=== PATIENT | female | born 1975 | race Caucasian/White ===

== ENCOUNTER 2016-08-07 10:23 | Day surgery (SDC) | payer OTHER ==
--- NOTE | ~2016-08-07 | EGD ---
EGD REPORT [facility] [address] [place]. [address] NAME: BRITTNEY SIMMONS : [birth year] STATUS : REG [facility] PAT#: [id number] AGE: 41 ADM/REG DATE : 08/07/16 MR#: [id number] REPORT SERV DATE: 08/07/16 DICTATED BY: JARRETT PÉREZ DATE: 08/07/16 REPORT STATUS : Draft TRANSCRIBED [facility]: [facility] DATE: 08/07/16 Endoscopy Center Patient Name: Brittney Simmons Date of : 1975 Attending MD: JARRETT PÉREZ MD Procedure Date No Time: 08/07/2016 Procedure: Upper GI endoscopy Indications: Anemia, Diarrhea, Nausea Referring MD: CHIDI HALE Medicines: Monitored Anesthesia Care Complications: No immediate complications. Procedure: Pre-Anesthesia Assessment: - ASA Grade Assessment: III - A patient with severe systemic disease. After obtaining informed consent, the endoscope was passed under direct vision. Throughout the procedure, the patient's blood pressure, pulse, and oxygen saturations were monitored continuously. The GIF [id number] was introduced through the mouth, and advanced to the second part of duodenum. The upper GI endoscopy was accomplished without difficulty. The patient tolerated the procedure well. Findings: The examined esophagus was normal. The entire examined stomach was normal. The cardia and gastric fundus were normal on retroflexion. The duodenal bulb and 2nd part of the duodenum were normal. Biopsies were taken with a cold forceps for histology. Impression: - Normal esophagus. - Normal stomach. - Normal duodenal bulb and 2nd part of the duodenum. Biopsied. Recommendation: - Await pathology results. Procedure Code(s): --- Professional --- 26456, Esophagogastroduodenoscopy, flexible, transoral; with biopsy, single or multiple Diagnosis Code(s): --- Professional --- D64.9, Anemia, unspecified R19.7, Diarrhea, unspecified R11.0, Nausea EGD REPORT [facility] [address] [facility]. [address] NAME: BRITTNEY SIMMONS : [birth year] STATUS : REG [facility] [place] PAT#: [id number] AGE: 41 ADM/REG DATE : 08/07/16 MR#: [id number] REPORT SERV DATE: 08/07/16 DICTATED BY: JARRETT PÉREZ DATE: 08/07/16 REPORT STATUS : Draft TRANSCRIBED BY: [employer] SERVICES DATE: 08/07/16 CPT copyright 2013 [employer]. All rights reserved. The codes documented in this report are preliminary and upon garage door hanger review may be revised to meet current compliance requirements. JARRETT PÉREZ MD 08/07/2016 1:40 PM This report has been signed electronically. Number of Addenda: 0 Note Initiated On: 08/07/2016 1:27 PM Scope Withdrawal Time 0 hours 0 minutes 0 seconds [address] [facility] [place] [address]
--- NOTE | ~2016-08-07 | EGD ---
EGD REPORT [facility] [address] [place]. [address] NAME: BRITTNEY SIMMONS : [birth year] STATUS : REG [facility] [place] PAT#: [id number] AGE: 41 ADM/REG DATE : 08/07/16 MR#: [id number] REPORT SERV DATE: 08/07/16 DICTATED BY: JARRETT PÉREZ DATE: 08/07/16 REPORT STATUS : Draft [facility]ANSCRIBED BY: [facility] DATE: 08/07/16 Endoscopy Center Patient Name: Brittney Simmons Date of : 1975 Attending MD: JARRETT PÉREZ MD Procedure Date No Time: 08/07/2016 Procedure: Colonoscopy Indications: Anemia, Diarrhea Referring MD: CHIDI HALE Medicines: Monitored Anesthesia Care Complications: No immediate complications. Procedure: Pre-Anesthesia Assessment: - ASA Grade Assessment: III - A patient with severe systemic disease. After I obtained informed consent, the scope was passed under direct vision. Throughout the procedure, the patient's blood pressure, pulse, and oxygen saturations were monitored continuously. The CF [id number] was introduced through the anus and advanced to the terminal ileum, with identification of the appendiceal orifice and IC valve. The colonoscopy was performed without difficulty. The patient tolerated the procedure well. The quality of the bowel preparation was good. Findings: The digital rectal exam was normal. Pertinent negatives include no palpable rectal lesions. The terminal ileum appeared normal. The ascending colon appeared normal. Biopsies were taken with a cold forceps for evaluation of microscopic colitis. Three sessile polyps were found in the transverse colon. The polyps were 3 to 6 mm in size. These polyps were removed with a cold biopsy forceps. Resection and retrieval were complete. The sigmoid colon appeared normal. Biopsies were taken with a cold forceps for evaluation of microscopic colitis. Hemorrhoids were found during retroflexion and were mild. Impression: - The examined portion of the ileum was normal. - The ascending colon is normal. Biopsied. - Three 3 to 6 mm polyps in the transverse colon. Resected and retrieved. - The sigmoid colon is normal. Biopsied. - Hemorrhoids. Recommendation: - Patient has a contact number available for EGD REPORT [address] [address] NAME: BRITTNEY SIMMONS : [birth year] STATUS : REG [facility] [place] PAT#: [id number] AGE: 41 ADM/REG DATE : 08/07/16 MR#: [id number] REPORT SERV DATE: 08/07/16 DICTATED BY: JARRETT PÉREZ DATE: 08/07/16 REPORT STATUS : Draft TRANSCRIBED BY: [facility] DATE: 08/07/16 emergencies. The signs and symptoms of potential delayed complications were discussed with the patient. Return to normal activities tomorrow. Written discharge instructions were provided to the patient. - Regular diet. - Continue present medications. - Await pathology results. - Return to GI clinic in 4 weeks. Procedure Code(s): --- Professional --- 33051, Colonoscopy, flexible, proximal to splenic flexure; with biopsy, single or multiple Diagnosis Code(s): --- Professional --- K64.9, Unspecified hemorrhoids D12.3, Benign neoplasm of transverse colon D64.9, Anemia, unspecified R19.7, Diarrhea, unspecified CPT copyright 2013 [employer]. All rights reserved. The codes documented in this report are preliminary and upon supervisor gluing review may be revised to meet current compliance requirements. JARRETT PÉREZ MD 08/07/2016 2:07 PM This report has been signed electronically. Number of Addenda: 0 Note Initiated On: 08/07/2016 12:47 PM Scope Withdrawal Time 0 hours 12 minutes 47 seconds [address] [id number]
[~2016-08-07 10:23] MED LIST: DUONEB; FERROUS SULF325 M1 PO; FLOVENT44 INH; LEXAPRO10 PO; LIPITOR10 PO; LYRICA150 MG PO; MOBIC15 MG PO; PERCOCET 10/3251 TAB PO; TOPAMAX25 PO; VENTOLIN HFA INH; ZANAFLEX 4 MG TA4 MG
[2016-08-17] MEDS ORDERED: PERCOCET 10/3251 TAB PO (15:38)
[2016-08-17] MEDS ORDERED: CLARIT10 PO (15:40)
[2016-08-17] MEDS ORDERED: MELATONIN10 M2 PO (15:43)
[2016-08-17] MEDS ORDERED: PROBIOTIC PO (15:44)
[2016-08-17] MEDS ORDERED: VALERIAN ROOT PO (15:44)
[2016-08-17] MEDS ORDERED: DIMENHY50I PO (15:45)
== END 2016-08-07 23:59 | disposition home or self-care (01) ==
LOC: DMU 10:23
PROVIDERS: Internal Medicine Gastroenterology
PROC: 0DBN8ZZ Excision of Sigmoid Colon, Via Natural or Artificial Opening Endoscopic (ICD-10-PCS; 2016-08-07)
PROC: 0DB98ZX Excision of Duodenum, Via Natural or Artificial Opening Endoscopic, Diagnostic (ICD-10-PCS; 2016-08-07)
PROC: 0DBK8ZX Excision of Ascending Colon, Via Natural or Artificial Opening Endoscopic, Diagnostic (ICD-10-PCS; principal; 2016-08-07 12:30)
PROC: 0DBN8ZX Excision of Sigmoid Colon, Via Natural or Artificial Opening Endoscopic, Diagnostic (ICD-10-PCS; 2016-08-07 12:30)
DX: K63.5 Polyp of colon (principal); K64.9 Unspecified hemorrhoids; R19.7 Diarrhea, unspecified; D64.9 Anemia, unspecified; R11.0 Nausea; Z91.040 Latex allergy status; Z88.8 Allergy status to other drugs, medicaments and biological substances; G43.909 Migraine, unspecified, not intractable, without status migrainosus; R25.1 Tremor, unspecified; J45.909 Unspecified asthma, uncomplicated; E78.00 Pure hypercholesterolemia, unspecified; M79.7 Fibromyalgia; E66.01 Morbid (severe) obesity due to excess calories; Z79.891 Long term (current) use of opiate analgesic; Z79.51 Long term (current) use of inhaled steroids
CPT/HCPCS: 84703; 88305

== ENCOUNTER 2016-08-23 09:00 | Day surgery (SDC) | payer OTHER ==
[2016-08-22 10:18] LABS: BASOPHILS 0.4 %; BASOPHILS ABSOLUTE 0.04 10/3/uL (0.0-0.16); EOSINOPHILS 1.9 %; EOSINOPHILS ABSOLUTE 0.19 10/3/uL (0.0-0.53); HEMATOCRIT 36.9 % (36.0-48.0); HEMOGLOBIN 11.7 g/dL (12.0-16.0); IMMATURE GRANULOCYTES 0.3 %; IMMATURE GRANULOCYTES ABSOLUTE 0.03 10/3/uL (0.0-0.11); LYMPHOCYTES 29.4 %; LYMPHOCYTES ABSOLUTE 2.93 10/3/uL (0.67-4.30); MEAN CORPUS HGB CONC 31.7 g/dL (32.0-36.0); MEAN CORPUSCULAR HEMOGLOB 27.7 pg (26.0-34.0); MEAN CORPUSCULAR VOLUME 87.2 fL (80-100); MEAN PLATELET VOLUME 10.6 fL (9.2-13.0); MONOCYTES 6.7 %; MONOCYTES ABSOLUTE 0.67 10/3/uL (0.21-1.20); NEUTROPHILS 61.3 %; NEUTROPHILS ABSOLUTE 6.09 10/3/uL (2.02-8.40); PLATELET COUNT 333 10/3/uL (150-400); RED CELL COUNT 4.23 10/6/uL (4.0-5.6)
[2016-08-22 10:19] LABS: MANUAL DIFF NO %
[2016-08-22 10:37] LABS: A/G RATIO 1.1 (0.7-1.9); ALBUMIN 3.7 G/DL (3.5-5.0); ALKALINE PHOSPHATASE 117 U/L (45-117); BUN (BLOOD UREA NITROGEN) 6 MG/DL (6-23); CHLORIDE, SERUM 107 MMOL/L (96-112); CO2 (CARBON DIOXIDE) 30 MMOL/L (24-34); CREATININE 0.82 MG/DL (0.55-1.02); GFR AFRICAN AMERICAN 102 ML/MIN (>=60); GFR NON AFRICAN AMERICAN 88 ML/MIN (>=60); GLOBULIN 3.4 G/DL (2.5-4.1); GLUCOSE, SERUM 91 MG/DL (60-99); POTASSIUM, SERUM 4.2 MMOL/L (3.5-5.3); SGOT(AST) 27 U/L (5-40); SGPT(ALT) 42 U/L (5-65); SODIUM, SERUM 141 MMOL/L (135-148); TOTAL BILIRUBIN 0.4 MG/DL (0-1.2); TOTAL PROTEIN 7.1 G/DL (6.0-8.5)
--- NOTE | ~2016-08-23 | PREOPHP ---
PreOp History and Physical [address] [place]. [address] NAME: BRITTNEY VILLASENOR : [birth year] STATUS : PRE [facility] [place] PAT#: [id number] AGE: 41 ADM/REG DATE : MR#: [id number] REPORT SERV DATE: 08/22/16 DICTATED BY: VICENTE ROWLEY III DATE: 08/10/16 REPORT STATUS : Draft TRANSCRIBED BY: MODL DATE: 08/10/16 HISTORY OF PRESENT ILLNESS: This 41-year-old female comes to the operating room for laparoscopic cholecystectomy, possible laparotomy, for symptomatic cholelithiasis and cholecystitis. The patient complains of intermittent episodes of upper abdominal pain and associated nausea. These symptoms are ongoing for 4 years. Recently, these symptoms have become worse. The patient has gallstones, was felt to have symptomatic cholelithiasis and cholecystitis. The patient comes to the operating room now for laparoscopic cholecystectomy, possible laparotomy. PAST MEDICAL HISTORY: 1. Hypertension. 2. Migraine headaches. 3. Asthma. 4. Fibromyalgia. ALLERGIES: LISINOPRIL AND LATEX. MEDICATIONS: Albuterol, Dramamine, Flovent, Lexapro, Lipitor, Lyrica, Mobic, oxycodone, Topamax, and Zanaflex. It should be noted that the patient is on chronic pain management for fibromyalgia. PAST SURGICAL HISTORY: None. FAMILY HISTORY: Positive for diabetes. SOCIAL HISTORY: The patient has no history of tobacco or alcohol use. REVIEW OF SYSTEMS: The patient complains of fatigue and weight gain, swelling in her hands and feet, back pain, and joint pain. PHYSICAL EXAMINATION: GENERAL: This is an obese female, in no acute distress. She is alert and oriented x3, blood pressure 150/83, pulse 80, and temperature 98.6. HEENT: Unremarkable. Cranial nerves 2 through 12 are normal. LUNGS: Clear. CARDIAC: Normal. ABDOMEN: Soft with mild tenderness in the right upper quadrant. Extremities are normal. LABORATORY DATA: Gallbladder ultrasound confirms gallstones. ASSESSMENT: A 41-year-old female with: 1. Symptomatic cholelithiasis and cholecystitis. 2. Obesity. 3. Fibromyalgia. 4. Asthma. 5. Migraine headaches. PreOp History and Physical [address] [address] NAME: BRITTNEY VILLASENOR : [birth year] STATUS : PRE [facility] PAT#: [id number] AGE: 41 ADM/REG DATE : MR#: [id number] REPORT SERV DATE: 08/22/16 DICTATED BY: VICENTE ROWLEY III DATE: 08/10/16 REPORT STATUS : Draft TRANSCRIBED BY: RADHIKA DATE: 08/10/16 6. Hypertension. PLAN: The patient comes into the operating room now for laparoscopic cholecystectomy, possible laparotomy. This procedure, the risks, benefits, and alternatives, including but not limited to, the risk for bleeding, infection, common bile duct injury, bile leak, retained common bile stone, enterotomy, or injury to any abdominal structure, the possible need for laparotomy, the possible persistence of her symptoms unrelieved by surgery, the possibility of postoperative diarrhea or incisional hernia, and unforeseen complications including deep venous thrombosis, pulmonary embolus, myocardial infarction, stroke, pneumonia, and have been fully and completely explained to the patient at length prior to surgery. The fact that this is a major operation with the risk for major morbidity, mortality, and no guarantee for relief of her symptoms has been explained to her. The expected length of recovery with open laparoscopic procedures has been explained. The option of nonoperative management has been offered to the patient but declined. The patient's questions have been answered. She understands the risks and agrees to surgery as planned. MADELEINE/RADHIKA Vicente Rowley III, M.D. / [phone]
--- NOTE | ~2016-08-23 | OP ---
Record Of [facility] [address] [place]. [address] NAME: BRITTNEY VILLASENOR : [birth year] STATUS : REG [facility]#: [id number] AGE: 41 ADM/REG DATE : 08/23/16 MR#: [id number] REPORT SERV DATE: 08/23/16 DICTATED BY: VICENTE ROWLEY III DATE: 08/23/16 REPORT STATUS : Draft TRANSCRIBED BY: MODL DATE: 08/23/16 DATE OF PROCEDURE: 08/23/2016 PREOPERATIVE DIAGNOSIS: Symptomatic cholelithiasis and cholecystitis. POSTOPERATIVE DIAGNOSIS: Symptomatic cholelithiasis and cholecystitis. PROCEDURE: Laparoscopic cholecystectomy. SURGEON: Vicente Rowley M.D. ANESTHESIA: General with intubation. COMPLICATIONS: None. ESTIMATED BLOOD LOSS: Less than 30 mL. SPECIMENS: Gallbladder. DRAINS: None. LAP AND SPONGE COUNT: Correct x3. BRIEF HISTORY: This 41-year-old female presented with evidence for symptomatic cholelithiasis and cholecystitis. It was felt that laparoscopic cholecystectomy, possible laparotomy, was indicated. This procedure, the risks, benefits, and alternatives, including but not limited to the risk for bleeding, infection, common bile duct injury, bile leak, retained common bile duct stone, enterotomy or injury to any abdominal structure, the definite possible need for laparotomy with possible persistence of her symptoms unrelieved by surgery, possibility of postoperative diarrhea or incisional hernia, and unforeseen complications including deep venous thrombosis, pulmonary embolus, myocardial infarction, stroke, pneumonia, and , were fully and completely explained to the patient prior to surgery. The fact that this was a major operation with risk for major morbidity and mortality with no guarantee for relief of her symptoms were explained to her. The expected length of recovery of both open and laparoscopic procedures was explained to the patient who had questions which were answered. She fully understood the risks and agreed to the surgery as planned. FINDINGS: The patient's gallbladder elmore were thickened and inflamed and there were adhesions between the gallbladder and omentum consistent with cholecystitis. The liver and remainder of the upper abdomen were otherwise unremarkable as far as we could determine through the laparoscope. PROCEDURE IN DETAIL: After being appropriately identified and after discussing the risks of surgery with the patient and her family in the preoperative area, the patient was taken to the operating room and placed in the supine position on the operating room table. General Record Of [facility] [address] [place]. [address] NAME: BRITTNEY VILLASENOR : 71 [place]US : [place] [facility] [place] PAT#: [id number] AGE: 41 ADM/REG DATE : 08/23/16 MR#: [id number] REPORT SERV DATE: 08/23/16 DICTATED BY: VICENTE ROWLEY III DATE: 08/23/16 REPORT STATUS : Draft TRANSCRIBED BY: MODL DATE: 08/23/16 anesthesia was administered. She was intubated without difficulty. The abdomen was prepped and draped sterilely in the usual fashion. After an appropriate "[facility]" [facility], a small transverse incision was made below the umbilicus. The skin and fascia on either side was elevated with towel clips. A Veress needle was placed through the incision into the peritoneal cavity. Correct position of the needle in the peritoneal cavity was confirmed by the hanging drop test. The abdominal cavity was then insufflated to about 13 mmHg with carbon dioxide. Correct position of air in the peritoneal cavity was confirmed by palpation. The Veress needle was removed and replaced with 10 mm trocar. The laparoscope was placed through this. The patient was placed in the reverse Trendelenburg position and to her left. A second 10 mm trocar was placed just below the xiphoid process, to the right of the falciform ligament, under direct vision with the laparoscope. Two 5 mm trocars were placed along the right subcostal margin, one in the midaxillary line, the other in the midclavicular line. These were also placed under direct vision with the laparoscope. The upper abdomen was inspected. The gallbladder appeared to be chronically diseased. The gallbladder elmore were thickened and inflamed consistent chronic cholecystitis. The liver and remainder of the upper abdomen were otherwise unremarkable as far as we could determine through the laparoscope. The appropriate instruments were placed through the trocars. The gallbladder was grasped and the infundibulum of the gallbladder was retracted laterally and inferiorly so as to expose the triangle of Calot. Using careful sharp and blunt dissection, the cystic duct was carefully and meticulously defined proximally and distally. The cystic duct was fairly long. The junction of the cystic duct with the common bile duct was appreciated, but not skeletonized. The cystic artery was similarly defined proximally and distally. The fibrous and fatty tissue between these structures was divided so as to clearly identify the critical angle. Once these structures were clearly defined, the cystic duct was clipped using two clips on the common bile duct side and one on the gallbladder side, all placed as close to the gallbladder as possible, taking care not encroach upon or injure the common bile duct in any way. The cystic duct was then divided between these clips as close to the gallbladder as possible. We elected not to perform a cholangiogram because there was no preoperative or intraoperative evidence for biliary dilatation and because the patient's preoperative liver enzymes were normal and because her biliary anatomy was clearly defined. Again, the structure was not divided or clipped until the critical angle and triangle of Calot had been clearly identified. The cystic artery was then similarly clipped and divided as close to the gallbladder as possible. Using the spatula and the cautery, the gallbladder was carefully dissected from the liver bed. This went very well. Before the gallbladder was completely removed, the gallbladder bed and portal areas were irrigated numerous times with saline. The saline was aspirated dry. This process was repeated several times until hemostasis was meticulously and thoroughly assured in all areas. It was also assured that the clips in the portal areas were in good position and there was no extravasation of bile from any accessory bile duct. Once this was assured, the gallbladder was completely dissected away from the liver and placed in the Endopouch. The liver bed was elevated, irrigated, and inspected for meticulous and thorough hemostasis and for absence of any biliary extravasation and to be certain that the clips were in good position. Once this was assured, the gallbladder and Endopouch were brought out through the infraumbilical incision and placed in the laparoscope through the subxiphoid port. The fascia of the infraumbilical incision was closed with 0 Vicryl suture. The lateral two trocars were removed. These two lower trocar sites were inspected on the underside for hemostasis with the laparoscope. Once this was assured, the subxiphoid trocar was removed Record Of Operation [facility] [address] [facility] [address] NAME: BRITTNEY VILLASENOR : [birth year] STATUS : REG [facility]#: [id number] AGE: 41 ADM/REG DATE : 08/23/16 MR#: [id number] REPORT SERV DATE: 08/23/16 DICTATED BY: AMRIK RAGSDALEVICENTET DATE: 08/23/16 REPORT STATUS : Draft TRANSCRIBED BY: RADHIKA DATE: 08/23/16 under direct vision with the laparoscope to assure hemostasis in this incision. The air was removed from the peritoneal cavity through this incision. The skin incisions were inspected for hemostasis, they were closed with running subcuticular 4-0 Monocryl stitches. They were injected with one-half percent Marcaine. Dressings were applied. Anesthesia was reversed and the patient was taken to the recovery room in stable condition. The patient tolerated the procedure well. Her family was informed of the results of surgery. The patient will be discharged later when she is stable, comfortable and tolerating liquids and able to void and ambulate. Her family was advised that she should remain on a liquid diet today and advance this as tolerated to a regular diet tomorrow. She should keep wounds clean and dry for 48 hours and that she should not drive for 3 to 4 days after surgery or while using narcotics or Phenergan. They were advised that she should resume her usual medications. She was given a prescription for a narcotic and Phenergan, which she was advised to not take while driving. She was asked to return to the office in two weeks for followup or sooner for nausea, vomiting, fever, chills, wound drainage, abdominal pain, weakness, or other problems prior to that time. MADELEINE/RADHIKA Vicente Rowley III, M.D. / [id number] CC: Bennie Rashid III, FNP
[~2016-08-23 09:00] MED LIST changes: +CLARIT10 PO; +DIMENHY50I PO; +MELATONIN10 M2 PO; +PROBIOTIC PO; +VALERIAN ROOT PO
[2016-08-23 16:24] LABS: HEMATOCRIT 37.9 % (36.0-48.0); HEMOGLOBIN 12.3 g/dL (12.0-16.0)
== END 2016-08-23 17:37 | disposition home or self-care (01) ==
LOC: SDC 09:00
PROVIDERS: Surgery
PROC: 0FT44ZZ Resection of Gallbladder, Percutaneous Endoscopic Approach (ICD-10-PCS; principal; 2016-08-23 11:15)
DX: K80.10 Calculus of gallbladder with chronic cholecystitis without obstruction (principal); J45.909 Unspecified asthma, uncomplicated; M79.7 Fibromyalgia; E66.9 Obesity, unspecified; Z68.38 Body mass index [BMI] 38.0-38.9, adult; Z88.8 Allergy status to other drugs, medicaments and biological substances; Z91.040 Latex allergy status; Z79.1 Long term (current) use of non-steroidal anti-inflammatories (NSAID); Z79.891 Long term (current) use of opiate analgesic; Z79.51 Long term (current) use of inhaled steroids; Z79.899 Other long term (current) drug therapy
CPT/HCPCS: 71020; 80053; 84703; 85014; 85018; 85025; 88304; 93005; A9270-GY; J0330; J0690; J1170; J1885; J2250; J2405; J2710; J3010